=== PATIENT | female | born 2000 ===

== ENCOUNTER 2021-04-06 11:04 | Emergency (ER) | payer SELFPAY ==
[2021-04-06 12:04] VITALS: BP 122/82
--- NOTE | 2021-04-06 12:52 | XRay Report ---
CHEST 2 VIEWS INDICATION / CLINICAL INFORMATION: covid +, worsening. COMPARISON: None available. FINDINGS: SUPPORT DEVICES: None. HEART / MEDIASTINUM: No significant abnormality. LUNGS / PLEURA: There are mild subtle pulmonary opacities throughout both lower lobes most likely rep resenting viral pneumonia given the patient's history. No area of consolidation. No pleural effusion. No pneumothorax. ADDITIONAL FINDINGS: No significant additional findings. IMPRESSION: 1. Mild bilateral lower lobe pulmonary opacities most likely representing bilateral Covid pneumonia. Signer Name: Nalini Arteaga MD Signed: 04/06/2021 12:47 PM Workstation Name: [id number]
== END 2021-04-06 15:34 ==
LOC: ED 11:04
DX: R05 Cough (principal); R10.9 Unspecified abdominal pain; Z53.21 Procedure and treatment not carried out due to patient leaving prior to being seen by health care provider
CPT/HCPCS: 71046